=== PATIENT | male | born 1955 | race Caucasian/White ===

== ENCOUNTER 2016-10-17 07:25 | Outpatient (CLI) | payer OTHER ==
[~2016-10-17] VITALS: Ht 177.8 cm; Wt 103.4 kg
[~2016-10-17 07:25] MED LIST: METO25TA74 PO
[2016-10-17] MEDS ORDERED: NS 1,000 ML IV SCH (07:45)
[2016-10-17] MEDS ORDERED: PROPOFOL 200 MG/20 ML VIAL As Ordered ONE (08:32)
[2016-10-17] MEDS ORDERED: LIDOCAINE 2% INJ 100 MG/5 ML SDV (FOR ANES.) As Ordered ONE (08:32)
--- NOTE | 2016-10-17 08:34 | ROOR ---
Patient Name: Pedro Salcido Procedure Date: 10/17/2016 8:09 AM Date of : 1955 Age: 61 Room: M OPP Gender: Male Note Status: Finalized Procedure: Colonoscopy Indications: High risk colon cancer surveillance: Personal history of colonic polyps Providers: Slava Rivera MD Referring MD: VITA SANDOVAL MD Requesting Provider: Medicines: Monitored Anesthesia Care Complications: No immediate complications. Procedure: Pre-Anesthesia Assessment: - Prior to the procedure, a History and Physical was performed, and patient medications and allergies were reviewed. The patient is competent. The risks and benefits of the procedure and the sedation options and risks were discussed with the patient. All questions were answered and informed consent was obtained. Patient identification and proposed procedure were verified by the physician, the nurse and the anesthesiologist in the endoscopy suite. Mental Status Examination: alert and oriented. Airway Examination: normal oropharyngeal airway and neck mobility. Respiratory Examination: clear to auscultation. CV Examination: normal. Prophylactic Antibiotics: The patient does not require prophylactic antibiotics. Prior Anticoagulants: The patient has taken no previous anticoagulant or antiplatelet agents. ASA Grade Assessment: II - A patient with mild systemic disease. After reviewing the risks and benefits, the patient was deemed in satisfactory condition to undergo the procedure. The anesthesia plan was to use monitored anesthesia care (MAC). Immediately prior to administration of medications, the patient was re-assessed for adequacy to receive sedatives. The heart rate, respiratory rate, oxygen saturations, blood pressure, adequacy of pulmonary ventilation, and response to care were monitored throughout the procedure. The physical status of the patient was re-assessed after the procedure. The Colonoscope was introduced through the anus and advanced to the cecum, identified by appendiceal orifice and ileocecal valve. The colonoscopy was performed without difficulty. The patient tolerated the procedure well. The quality of the bowel preparation was good. Findings: The perianal and digital rectal examinations were normal. A few medium-mouthed diverticula were found in the sigmoid colon. There was no evidence of diverticular bleeding. The colon (entire examined portion) appeared normal. Estimated blood loss: none. No additional abnormalities were found on retroflexion. Impression: - Moderate diverticulosis in the sigmoid colon. There was no evidence of diverticular bleeding. - The entire examined colon is normal. - No specimens collected. Recommendation: - Discharge patient to home (ambulatory). - High fiber diet indefinitely. Slava Rivera MD Slava Rivera MD 10/17/2016 8:33:31 AM This report has been signed electronically. Number of Addenda: 0 Note Initiated On: 10/17/2016 8:09 AM Estimated Blood Loss: Estimated blood loss: none.
[2016-10-18 12:24] VITALS: BP 130/82
== END 2016-10-17 09:10 | disposition home or self-care (01) ==
LOC: M OPP 07:25
PROVIDERS: ATTEND Surgery
DX: Z12.11 Encounter for screening for malignant neoplasm of colon (principal); K57.30 Diverticulosis of large intestine without perforation or abscess without bleeding; I10 Essential (primary) hypertension; Z80.0 Family history of malignant neoplasm of digestive organs; Z79.899 Other long term (current) drug therapy